=== PATIENT | female | born 1990 | race African-American/Black ===

== ENCOUNTER 2019-09-18 12:56 | Emergency (ER) | payer OTHER ==
[~2019-09-18] VITALS: Ht 152.4 cm; Wt 72.0 kg
[~2019-09-18 12:56] MED LIST: CIPR500T94 PO; FLUC150T PO
[2019-09-18 13:04] VITALS: BP 142/72
[2019-09-18] MEDS ORDERED: CYCL10TA2 PO (14:15)
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
== END 2019-09-18 14:21 | disposition home or self-care (01) ==
LOC: ER 12:56
DX: S09.90XA Unspecified injury of head, initial encounter (principal); M54.6 Pain in thoracic spine; Y04.2XXA Assault by strike against or bumped into by another person, initial encounter; Y93.89 Activity, other specified; Y92.69 Other specified industrial and construction area as the place of occurrence of the external cause; Y99.0 Civilian activity done for income or pay
CPT/HCPCS: 99283